=== PATIENT | male | born 1980 | race Caucasian/White ===

== ENCOUNTER 2020-07-20 15:12 | Emergency (ER) | payer OTHER ==
[~2020-07-20] VITALS: Ht 175.3 cm; Wt 83.9 kg
== END 2020-07-20 18:06 | disposition home or self-care (01) ==
LOC: ER 15:12
DX: S61.222A Laceration with foreign body of right middle finger without damage to nail, initial encounter (principal); W45.8XXA Other foreign body or object entering through skin, initial encounter; Y93.89 Activity, other specified; Y92.89 Other specified places as the place of occurrence of the external cause; Y99.8 Other external cause status

== ENCOUNTER 2025-01-27 10:58 | Emergency (ER) | payer OTHER ==
[~2025-01-27] VITALS: Ht 175.3 cm; Wt 90.7 kg
[2025-01-27 11:40] VITALS: O2SAT 99
[2025-01-27] MEDS ORDERED: ENALAPRILAT DIHYDRATE 1.25 MG/ML VIAL IV ONE ×2 (12:00→12:36)
[2025-01-27] MEDS ORDERED: DEXAMETHASONE SODIUM PHOSPHATE 4 MG/ML VIAL IM STA (12:00)
[2025-01-27] MEDS ORDERED: MECLIZINE HCL 25 MG TABLET PO ONE ×2 (12:00→12:36)
[2025-01-27] MEDS ORDERED: DEXAMETHASONE SODIUM PHOSPHATE 4 MG/ML VIAL ONE (12:36)
[2025-01-27 13:26] LABS: BASO % 0.4 % (0.1-1.2); EOS # 0.05 (0.04-0.54); EOS % 0.9 % (0.7-7.0); LYMPH # 0.57 (1.18-3.74); LYMPH % 10.3 % (19.3-53.1); MEAN PLATELET VOLUME 9.50 fl (9.4-12.4); MONO # 0.84 (0.24-0.82); NEUT # 4.01 (1.56-6.13); NEUT % 72.8 % (34.0-71.1); RED CELL DISTRIBUTION WIDTH 13.5 % (11.6-14.4)
[2025-01-27 13:28] LABS: MONO % 15.2 % (4.7-12.5)
[2025-01-27 13:52] LABS: INR 0.99
[2025-01-27 14:05] LABS: BUN CREA RATIO 15.0 (7.0-25.0); CREATININE SERUM 0.87 mg/dL (0.70-1.30); GFR 94.89; GLUCOSE FASTING 82.0 mg/dL (65-100); OSMOLALITY SERUM 280.0 MOSM/KG (275-295)
[2025-01-27 16:00] VITALS: BP 154/80
== END 2025-01-27 16:01 | disposition home or self-care (01) ==
LOC: ER 10:59
PROVIDERS: General Practice
DX: R42 Dizziness and giddiness (principal); R07.89 Other chest pain